=== PATIENT | female | born 1985 ===

== ENCOUNTER 2018-11-05 13:51 | Emergency (ER) | payer OTHER ==
[2018-11-05 14:14] VITALS: BP 134/86
--- NOTE | 2018-11-05 14:19 | UC ---
General HPI - HPI Summary HPI Summary: 32 yo female presents requesting STD testing. She has no known exposure and no symptoms at this time. - History of Current Complaint Chief Complaint: [facility]CG[facility] Stated Complaint: PERSONAL Time Seen by Provider: 11/05/18 14:18 Hx Obtained From: Patient Hx Last Menstrual Period: no period Current Severity: None Pain Intensity: 0 - Allergy/Home Medications Allergies/Adverse Reactions: Allergies Allergy/AdvReac Type Severity Reaction Status Date / Time No Known Allergies Allergy Verified 11/05/18 14:09 Home Medications: Home Medications Dextroamphetamine/Amphetamine [Adderall 20 mg Tablet] 1 tab PO TID 11/05/18 [ History Confirmed 11/05/18] PMH/Surg Hx/FS Hx/Imm Hx - Additional Past Medical History Additional PMH: ADHD - Surgical History Surgical History: None - Family History Known Family History: Positive: None - Social History Alcohol Use: Occasionally Substance Use Type: Marijuana Substance Use Comment - Amount & Last Used: daily Smoking Status (MU): Light Every Day Tobacco Smoker Amount Used/How Often: 1/2 PPD Review of Systems All Other Systems Reviewed And Are Negative: Yes Constitutional: Positive: Negative Skin: Positive: Negative Respiratory: Positive: Negative Cardiovascular: Positive: Negative Gastrointestinal: Positive: Negative Genitourinary: Positive: Negative Neurological: Positive: Negative Psychological: Positive: Negative Physical Exam - Summary Physical Exam Summary: GENERAL: NAD. WDWN. No pain distress. SKIN: No rashes, sores, lesions, or open wounds. NECK: Supple. Nontender. No lymphadenopathy. CHEST: No accessory muscle use. Breathing comfortably and in no distress. CV: Pulses intact. Cap refill <2seconds NEURO: Alert. PSYCH: Age appropriate behavior. Triage Information Reviewed: Yes Vital Signs: Initial Vital Signs Temp 98.5 F 11/05/18 14:10 Pulse 88 11/05/18 14:10 Resp 18 11/05/18 14:10 BP 134/86 11/05/18 14:10 Pulse Ox 100 11/05/18 14:10 Vital Signs Reviewed: Yes Course/Dx - Course Course Of Treatment: Urine sample obtained for GC/C. Bloodwork drawn for HIV, herpes, RPR, and hepatitis. Will call with results - Diagnoses Provider Diagnosis: Screen for STD (sexually transmitted disease) Discharge - Sign-Out/Discharge Documenting (check all that apply): Patient Departure All imaging exams completed and their final reports reviewed: No Studies - Discharge Plan Condition: Stable Disposition: HOME Patient Education Materials: Sexually Transmitted Diseases (ED) Referrals: No Primary Care Phys,NOPCP [Primary Care Provider] - Additional Instructions: If you develop a fever, shortness of breath, chest pain, new or worsening symptoms - please call your PCP or go to the ED. - Billing Disposition and Condition Condition: STABLE Disposition: Home
[2018-11-08 12:53] LABS: Herpes Simplex Virus II IgG AB Negative (Negative)
--- NOTE | 2018-11-08 16:18 | UC ---
- Progress Note Progress Note: Chlamydia positive. Rx sent for azithromycin 1gm. Please advise to not engage in sexual activity for at least 1 week after taking antibiotics. Course/Dx - Diagnoses Provider Diagnoses: Screen for STD (sexually transmitted disease) Discharge - Sign-Out/Discharge Documenting (check all that apply): Post-Discharge Follow Up All imaging exams completed and their final reports reviewed: No Studies - Discharge Plan Condition: Stable Disposition: HOME Prescriptions: Azithromycin 1,000 mg PO ONCE #2 tab Patient Education Materials: Sexually Transmitted Diseases (ED) Referrals: No Primary Care Phys,NOPCP [Primary Care Provider] - Additional Instructions: If you develop a fever, shortness of breath, chest pain, new or worsening symptoms - please call your PCP or go to the ED. - Billing Disposition and Condition Condition: STABLE Disposition: Home
== END 2018-11-05 15:00 | disposition home or self-care (01) ==
LOC: UCEAST 13:51
DX: Z11.3 Encounter for screening for infections with a predominantly sexual mode of transmission (principal); F90.9 Attention-deficit hyperactivity disorder, unspecified type; F17.200 Nicotine dependence, unspecified, uncomplicated
CPT/HCPCS: 36415; 80074; 86592; 86695; 86696; 86703; 87491; 87591; 99201; G0463